=== PATIENT | female | born 1990 | race African-American/Black ===

== ENCOUNTER 2024-05-01 04:27 | Day surgery (SDC) | payer OTHER ==
[2024-04-29 13:02] VITALS: BMI 27.8
[2024-05-01 08:36] VITALS: RESP 16; TEMP 98.2
[2024-05-01 09:09] VITALS: BP 127/86; PULSE 83
== END 2024-05-01 09:29 | disposition home or self-care (01) ==
LOC: JASU-ENDO 04:27
PROVIDERS: ATTEND Internal Medicine Gastroenterology
PROC: 0DB78ZX Excision of Stomach, Pylorus, Via Natural or Artificial Opening Endoscopic, Diagnostic (ICD-10-PCS; 2024-05-01)
PROC: 0DJD8ZZ Inspection of Lower Intestinal Tract, Via Natural or Artificial Opening Endoscopic (ICD-10-PCS; 2024-05-01)
PROC: 0DB68ZX Excision of Stomach, Via Natural or Artificial Opening Endoscopic, Diagnostic (ICD-10-PCS; principal; 2024-05-01 08:00)
DX: Z12.11 Encounter for screening for malignant neoplasm of colon (principal); Z86.010 Personal history of colon polyps; D13.91 Familial adenomatous polyposis
CPT/HCPCS: 88305-TC; 88342-TC